=== PATIENT | male | born 1970 | race Two or more races ===

== ENCOUNTER 2022-09-07 16:28 | Emergency (ER) | payer OTHER ==
[~2022-09-07] VITALS: Ht 175.3 cm; Wt 97.5 kg
== END 2022-09-07 21:40 | disposition home or self-care (01) ==
LOC: ER 16:28
DX: R42 Dizziness and giddiness (principal); R53.83 Other fatigue; R19.7 Diarrhea, unspecified; Z20.822 Contact with and (suspected) exposure to COVID-19